=== PATIENT | male | born 1960 | race Caucasian/White ===

== ENCOUNTER 2017-05-25 07:11 | Emergency (ER) | payer BC ==
[~2017-05-25] VITALS: Ht 188 cm; Wt 114.1 kg
[~2017-05-25 07:11] MED LIST: CEPH500 PO; CLIN1CAP5 PO; METO50TA PO; TAMS0.4C67; VYTO10TA29 PO
[2017-05-25 07:18] VITALS: BP 124/68; PULSE 86; RESP 16; TEMP 98.3; O2SAT 94
[2017-05-25] MEDS ORDERED: METO50TA PO (07:30)
[2017-05-25] MEDS ORDERED: ASPI81CH CHEW (07:30)
[2017-05-25] MEDS ORDERED: TAMS5CAP PO (07:30)
[2017-05-25] MEDS ORDERED: VITORIN PO (07:30)
[2017-05-25] MEDS ORDERED: VYTO10TA27 PO (07:30)
[2017-05-25] MEDS ORDERED: CEPH-460 PO (07:37)
--- NOTE | 2017-05-25 07:42 | PD ---
HPI Chief Complaint: Bite or Sting Time Seen by Provider: 07:32 Travel History International Travel<30 days: No Contact w/Intl Traveler<30days: No Traveled to known affect area: No History of Present Illness HPI Patient is a 56-year-old male who presents to emergency room complaints of bug bite 2 days ago, reports that area is pruritic and there appears to be an area of redness surrounding this bite. Patient with no fevers or chills, reports that tetanus is not up-to-date. Patient reports that he has been scratching this area, reports concerns for the surrounding area of erythema around base of bug bite wound. PFSH Past Medical History Cardiovascular Problems: Yes High Cholesterol: Yes Diminished Hearing: No GERD: Yes Hypertension: Yes Reproductive: Yes (ENLARGED PROSTATE) Immunizations Current: No Social History Alcohol Use: No Tobacco Use: No Substance Use: No Allergies-Medications (Allergen,Severity, Reaction): Coded Allergies: clarithromycin (Verified Adverse Reaction, Intermediate, vomiting, 05/25/17 ) Reported Meds & Prescriptions Reported Meds & Active Scripts Active Reported Vytorin (Ezetimibe-Simvastatin) 10-10 Mg Tab 1 Tab PO HS Aspirin 81 Mg Chew 81 Mg CHEW DAILY Flomax (Tamsulosin HCl) 0.4 Mg Cap 0.4 Mg PO HS Metoprolol Tartrate 50 Mg Tab 50 Mg PO BID Review of Systems General / Constitutional: No: Fever Eyes: No: Visual changes HENT: No: Headaches Cardiovascular: No: Chest Pain or Discomfort Respiratory: No: Shortness of Breath Gastrointestinal: No: Abdominal Pain Genitourinary: No: Dysuria Musculoskeletal: No: Pain Skin: Positive Rash, Positive Itching, No Lumps, No Hives Neurologic: No: Weakness Psychiatric: No: Depression Endocrine: No: Polydipsia Hematologic/Lymphatic: No: Easy Bruising Physical Exam Narrative GENERAL: Well-nourished, well-developed patient. SKIN: Focused skin assessment warm/dry. Patient with the 4 x 4 centimeters circumferential area of erythema with no drainage or discharge. There is no streaking. There appears to be a pinpoint area of open wound in the middle of this area. There are no areas of fluctuance. HEAD: Normocephalic. EYES: No scleral icterus. No injection or drainage. NECK: Supple, trachea midline. No JVD or lymphadenopathy. CARDIOVASCULAR: Regular rate and rhythm without murmurs, gallops, or rubs. RESPIRATORY: Breath sounds equal bilaterally. No accessory muscle use. GASTROINTESTINAL: Abdomen soft, non-tender, nondistended. MUSCULOSKELETAL: No cyanosis, or edema. Data Data Last Documented VS Vital Signs Date Time Temp Pulse Resp B/P (MAP) Pulse Ox O2 Delivery O2 Flow Rate FiO2 05/25/17 07:18 98.3 86 16 124/68 (86) 94 [facility] Medical Decision Making Medical Screen Exam Complete: Yes Emergency Medical Condition: Yes Interpretation(s) Vital Signs Date Time Temp Pulse Resp B/P (MAP) Pulse Ox O2 Delivery O2 Flow Rate FiO2 05/25/17 07:18 98.3 86 16 124/68 (86) 94 Differential Diagnosis Differential includes bug bite with surrounding cellulitis, allergic reaction Narrative Course Patient is a 56-year-old male who presents to emergency room complaints of bug bite 2 days ago, reports that area is pruritic and there appears to be an area of redness surrounding this bite. Patient with no fevers or chills, patient concerned for possible underlying infection. Vital signs are stable. Plan to update patient's tetanus. Patient with most likely bug bite with underlying infection. Plan to start patient on Keflex. He does not have history of MRSA. Patient will return to the emergency room or to his primary care doctor's office and 48 hours for wound check. Signs and symptoms of when to return to the emergency was reviewed patient in detail. Diagnosis Primary Impression: Bug bite of face with infection Qualified Codes: S00.86XA - Insect bite (nonvenomous) of other part of head, initial encounter; L08.9 - Local infection of the skin and subcutaneous tissue, unspecified; W57.XXXA - Bitten or stung by nonvenomous insect and other nonvenomous arthropods, initial encounter Patient Instructions: General Instructions Additional Instructions: Please take all antibiotics as prescribed Please return to the emergency room or to primary care doctor's office in 48 hours for wound check Please return to emergency room earlier if you develop fever or chills or progressing symptoms Return to the emergency room as needed Med/Other Pt SpecificInfo: Prescription(s) given Scripts Cephalexin (Keflex) 500 Mg Cap 500 MG PO Q6H for Infection for 7 Days, #28 CAP 0 Refills Prov: Karoline Phillips DO 05/25/17 Disposition: 01 DISCHARGE HOME Condition: Stable Karoline Phillips DO May 25, 2017 07:42
[2017-05-25] MEDS ORDERED: CEPHALEXIN MONOHYDRATE 500 MG CAP PO ONE (07:45)
[2017-05-25] MEDS ORDERED: TETANUS/DIPHTHERIA TOXOID ADULT 0.5 ML VIAL IM ONE (07:45)
== END 2017-05-25 08:11 | disposition home or self-care (01) ==
LOC: PHED 07:11
DX: S00.86XA Insect bite (nonvenomous) of other part of head, initial encounter (principal); L08.9 Local infection of the skin and subcutaneous tissue, unspecified; W57.XXXA Bitten or stung by nonvenomous insect and other nonvenomous arthropods, initial encounter; Z23 Encounter for immunization
CPT/HCPCS: 90471; 90714